=== PATIENT | female | born 1960 | race Caucasian/White ===

== ENCOUNTER → 2020-12-24 | Outpatient (CLI) | payer OTHER | LOC: SJCVCIMAG 07:44 | PROVIDERS: ATTEND Internal Medicine | DX: I07.1 Rheumatic tricuspid insufficiency (principal); R00.0 Tachycardia, unspecified; I11.9 Hypertensive heart disease without heart failure; I27.20 Pulmonary hypertension, unspecified; E78.5 Hyperlipidemia, unspecified; I70.1 Atherosclerosis of renal artery; E11.9 Type 2 diabetes mellitus without complications; F17.200 Nicotine dependence, unspecified, uncomplicated; Z79.4 Long term (current) use of insulin; Z79.899 Other long term (current) drug therapy ==

== ENCOUNTER 2021-11-05 18:37 | Inpatient (IN) | payer OTHER ==
[~2021-11-05] VITALS: Ht 167.6 cm; Wt 86.0 kg
[2021-11-05 21:00] VITALS: BP 153/61
[2021-11-05] MEDS ORDERED: SPIRONOLACTONE25 M1 PO (22:16)
[2021-11-05] MEDS ORDERED: OLMESARTAN MEDO20 MG PO (22:32)
[2021-11-05] MEDS ORDERED: COQ1050 MG PO (22:34)
[2021-11-05] MEDS ORDERED: ROSUVASTATIN CA10 MG PO (22:34)
[2021-11-05] MEDS ORDERED: TOPROL XL50 MG PO (22:37)
[2021-11-05] MEDS ORDERED: CLONIDINE HCL0.1 MG PO (22:39)
[2021-11-05] MEDS ORDERED: METFORMIN HCL500 M3 PO (22:40)
[2021-11-05] MEDS ORDERED: EZETIMIBE10 MG PO (22:41)
[2021-11-05] MEDS ORDERED: LANTUS SUBQ (22:42)
[2021-11-05] MEDS ORDERED: HUMALOG100 UNIT/1 SUBQ (22:43)
[2021-11-05] MEDS ORDERED: NEURONTIN300 MG PO (22:44)
[2021-11-05] MEDS ORDERED: ONDANSETRON HCL4 M2 PO (22:46)
[2021-11-05] MEDS ORDERED: IBU800 MG PO (22:49)
[2021-11-05] MEDS ORDERED: COMPAZINE10 M2 PO (22:50)
[2021-11-05] MEDS ORDERED: MONTELUKAST SODI4 M1 PO (22:54)
[2021-11-05 23:00] LABS: CHOLESTEROL 163 mg/dL (<200); HDL CHOLESTEROL 40 mg/dL (>40); LDL CHOLESTEROL 83 mg/dL (<100); TC:HDL 4.1 Ratio (Not establshd); TRIGLYCERIDE 204 mg/dL (<150); VLDL 41 mg/dL (<40)
[2021-11-05 23:05] LABS: SERUM ASSESSMENT Clear
[2021-11-06] VITALS: BP 153/58
[2021-11-06 04:45] VITALS: BP 152/59
--- NOTE | 2021-11-06 04:56 | NUR ---
ADMITTED THIS PATIENT FROM [facility] AROUND 2054H.PATIENT IS ALERT AND ORIENTED X4.WITH MALIK CATH IN PLACE INTACT.AFTER PATIENT WENT TO BATHROOM HAD COMPLAINT OF PAIN IN BETWEEN SHOULDER BLADE 4/10 A SPER PATIENT, INFORMED COMPENSATOR.ECG DONE AND WHILE DOING ECG PATIENT TOLD THAT PAIN HAS BEEN GONE 0/10.ECG WAS SEEN BY COMPENSATOR.ADMISSION COMPLETED.ALL NEEDS ATTENDED.KEPT NPO FROM MIDNIGHT PER COMPENSATOR FOR POSSIBLE CATH IN THE MORNING.TO CONTINOUSLY MONITOR.
[2021-11-06 07:01] LABS: MCH 29.7 pg (26.0-34.0)
[2021-11-06 07:06] LABS: HEMATOCRIT 28.3 % (37.0-47.0); HEMOGLOBIN 9.1 gm/dL (12.0-15.0); MCHC 32.2 g/dL (28.0-37.0); MCV 92.2 fL (80.0-100.0); RBC 3.07 mil/uL (4.20-5.00); RDW 17.3 % (10.5-14.5)
[2021-11-06 07:13] LABS: WBC 41.4 thou/uL (4.0-11.0)
[2021-11-06 07:37] LABS: CALCIUM 8.8 mg/dL (8.5-10.1); CREATININE 0.7 mg/dL (0.6-1.0); MAGNESIUM 1.9 mg/dL (1.8-2.4); POTASSIUM 3.9 mmol/L (3.5-5.1)
[2021-11-06 08:00] VITALS: BP 144/62
[2021-11-06 08:11] LABS: GLYCOHEMOGLOBIN (HGB A1C) 7.8 % (4.8-5.6)
--- NOTE | 2021-11-06 11:28 | EKG ---
[address] [address] ELECTROCARDIOGRAM REPORT Name: ROBERTA PHILIPPE Room #: 206- ADM IN M.R.#: [id number] Admission: 11/05/21 Attend Phys: Rene Bowman MD Discharge: Date of : 56 Report #: [id number] [facility] Test Date: 2021-11-06 Test Time: 00:13:35 Pat Name: ROBERTA PHILIPPE Department: Room: 206 Gender: F Bakery Technician: RC03 : 1960 Requested By: Jeanette Jackman Order Number: [id number] MD: Ronald Curry Measurements Intervals [place] Rate: 83 P: 59 [place]: 156 QRS: -27 QRSD: 89 T: 50 QT: 404 QTc: 475 Interpretive Statements Sinus rhythm Abnormal R-wave progression, late transition Inferior infarct, old No previous ECG available for comparison Electronically Signed On 11-06-2021 11:28:42 RN HYPERBARIC by Ronald Curry [email or web address] <ELECTRONICALLY SIGNED> By: Ronald Curry MD 11/06/21 1128 0013 0013 MD JUDY Bullock
--- NOTE | 2021-11-06 12:48 | 2DMMODE ---
[facility] [place] [address] 2 D/M-MODE ECHOCARDIOGRAM Name: ROBERTA PHILIPPE Room #: 206-P ADM IN ..#: [id number] Admission: 11/05/21 Attend Phys: Rene Bowman MD Discharge: Date of : 56 Report #: [id number] THIS REPORT FOR: cc: FAM - Family physician unknown FAM - Family physician unknown Ronald Curry MD ~ APPROVED REPORT Study performed: 11/06/2021 11:07:49 EXAM: Comprehensive 2D, Doppler, and color-flow Echocardiogram Patient Location: In-Patient Room #: 206 BSA: 2.00 HR: 70 bpm BP: 144/62 mmHg Rhythm: NSR Other Information Study Quality: Adequate Indications Diabetes Cardiomyopathy Chemo Chest Pain Hypertension/HDD 2D Dimensions IVSd: 13.72 (7-11mm) LVOT Diam: 21.31 (18-24mm) LVDd: 47.05 mm PWd: 14.18 (7-11mm) Ascending Ao: 37.65 (22-36mm) LVDs: 31.04 (25-40mm) Left Atrium: 48.41 (27-40mm) Aortic Root: 29.70 mm Volumes Left Atrial Volume (Systole) Single Plane 4CH: 54.99 mL Single Plane 2CH: 37.93 mL Biplane LA Volume: 49.00 mL LA ESV Index: 25.00 mL/m2 Aortic Valve [facility] [address] [address] 2 D/M-MODE ECHOCARDIOGRAM Name: ROBERTA PHILIPPE Atif Room #: 206-P [facility] IN ..#: [id number] Admission: 11/05/21 Attend Phys: Rene Bowman MD Discharge: Date of : 56 Report #: [id number] AoV [place].: 1.32 m/s AO Peak Gr.: 7.02 mmHg LVOT Max P.48 mmHg LVOT Max V: 0.93 m/s JOCELYNE Vmax: 2.51 cm2 Mitral Valve E/A Ratio: 1.3 MV Decel. Time: 200.36 ms MV E Max Parish.: 1.04 m/s MV A Parish.: 0.81 m/s MV PHT: 58.10 ms IVRT: 110.73 ms Pulmonary Valve PV Peak [place].: 1.21 m/s PV Peak Gr.: 5.90 mmHg Tricuspid Valve TR [place].: 1.26 m/s RAP Estimate: 7.00 mmHg TR Peak Gr.: 6.33 mmHg RVSP: 13.00 mmHg Left Ventricle The left ventricle is normal size. Regional wall motion is not well visualized but grossly normal. Mild concentric left ventricular hypertrophy. Left ventricular systolic function is normal. LVEF is 55%. Right Ventricle The right ventricle is normal size. The right ventricular systolic function is normal. Atria The left atrium size is normal. The right atrium size is normal. Aortic Valve Aortic valve is trileaflet. No aortic regurgitation is present. There is no aortic valvular stenosis. Mitral Valve The mitral valve is normal in structure. Mild mitral regurgitation. No evidence of mitral valve stenosis. Tricuspid Valve The tricuspid valve is normal in structure. Trace tricuspid regurgitation. Unable to assess PA pressure. [facility] [place] [address] [address] 2 D/M-MODE ECHOCARDIOGRAM Name: ROBERTA PHILIPPE Room #: 206-P [facility] IN .R.#: [id number] Admission: 11/05/21 Attend Phys: Rene Bowman MD Discharge: Date of : 56 Report #: [id number] Pulmonic Valve The pulmonary valve is normal in structure. There is no pulmonic valvular regurgitation. Great Vessels The aortic root is normal in size. IVC is normal in size and collapses >50% with inspiration. Pericardium There is no pericardial effusion. <Conclusion> The left ventricle is normal size. Mild concentric left ventricular hypertrophy. Left ventricular systolic function is normal. The right ventricle is normal size. The left atrium size is normal. Aortic valve is trileaflet. Mild mitral regurgitation. Trace tricuspid regurgitation. <ELECTRONICALLY SIGNED> By: Ronald Curry MD 11/06/21 1248 1248 1248 Ronald Curry MD /DRAKE
--- NOTE | 2021-11-06 13:03 | NUR ---
PATIENT IS BACK IN ROOM FROM HEART CATH PROCEDURE AT 1300. A STENT WAS PLACED IN THE MID-RCA AND HEMOSTASIS WAS ACHIEVED AT 12:40. PATIENT WILL REMAIN ON BEDREST FOR 3 HOURS POST-HEMOSTASIS AND HAS BEEN EDUCATED ON THE PRECAUTIONS IN PLACE. PATIENT IS CURRENTLY STABLE AND DENIES ANY CHEST PAIN OR PRESSURE. R GROIN SITE IS SOFT TO PALPATION WITH NO S/S OF HEMATOMA, MYNX CLOSURE DRESSING C/D/I.
--- NOTE | 2021-11-06 13:59 | NUR ---
PATIENT STATES SHE IS FEELING INTERMITTENT SOB, "LIKE EVERY SO OFTEN I FEEL LIKE I HAVE TO GASP FOR BREATH." DR. NEWBERRY WAS NOTIFIED VIA ANSWERING SERVICE AND AWAITING CALL BACK.
[2021-11-06 15:11] LABS: HEMATOCRIT 27.7 % (37.0-47.0); MCH 29.9 pg (26.0-34.0); MCHC 32.5 g/dL (28.0-37.0); MCV 92.1 fL (80.0-100.0); PLATELET COUNT 106 thou/uL (150-400); RBC 3.01 mil/uL (4.20-5.00); RDW 16.8 % (10.5-14.5); WBC 32.1 thou/uL (4.0-11.0)
[2021-11-06 15:30] VITALS: BP 135/72
[2021-11-06 15:47] LABS: ABSOLUTE NEUTROPHILS 29.9 thou/uL (1.4-8.2)
[2021-11-06 16:30] VITALS: BP 107/79
[2021-11-06 20:00] VITALS: BP 153/56
[2021-11-07 03:44] VITALS: BP 101/53
--- NOTE | 2021-11-07 04:47 | NUR ---
RECEIEVED PATIENT AT 1900H.ON ROOM AIR BREATHING SPONTANEOUSLY.WITH RIGHT GROIN COVERED WITH DRESSING C/D/I, NO HEMATOMA OR ANY COMPLICATIONS NOTED FROM THE SITE.PATIENTTOLD SHE USES CPAP AT HOME DURING SLEEP BUT DID NOT BRING HER OWN MACHINE, INFORMED RT. RT PLACED PATIENT ON VNTURI MASK AT 2LPM,WAS SATURATING WELL.MEDS GIVEN PER DEC.TO CONTINOUSLY MONITOR.
[2021-11-07 06:56] LABS: HEMATOCRIT 26.7 % (37.0-47.0); HEMOGLOBIN 8.8 gm/dL (12.0-15.0); MCH 30.5 pg (26.0-34.0); MCV 92.3 fL (80.0-100.0); RBC 2.9 mil/uL (4.20-5.00); RDW 16.8 % (10.5-14.5)
[2021-11-07 07:02] LABS: WBC 13.9 thou/uL (4.0-11.0)
[2021-11-07 07:13] LABS: ALBUMIN 2.8 g/dL (3.4-5.0); CALCIUM 8.6 mg/dL (8.5-10.1); CREATININE 0.6 mg/dL (0.6-1.0); POTASSIUM 3.4 mmol/L (3.5-5.1); TOTAL BILIRUBIN 0.2 mg/dL (0.2-1.0); TOTAL PROTEIN 5.8 g/dL (6.4-8.2)
[2021-11-07 07:55] VITALS: BP 130/46
--- NOTE | 2021-11-07 11:14 | EKG ---
[place] [address] [facility] [place] [address] ELECTROCARDIOGRAM REPORT Name: ROBERTA PHILIPPE Room #: 206- ADM IN M.R.#: [id number] Admission: 11/05/21 Attend Phys: Rene Bowman MD Discharge: Date of : 56 Report #: [id number] [facility] Test Date: 2021-11-07 Test Time: 07:33:52 Pat Name: ROBERTA PHILIPPE Department: Room: 206 Gender: F Mailing Jogger: MARY : 1960 Requested By: Ronald Curry Order Number: [id number] MD: Ronald Curry Measurements Intervals [place] Rate: 62 P: 49 [place]: 146 QRS: -28 QRSD: 110 T: -51 QT: 467 QTc: 475 Interpretive Statements Sinus rhythm Abnormal R-wave progression, late transition Probable left ventricular hypertrophy Inferior infarct, age indeterminate Compared to ECG 11/06/2021 13:10:58 No significant change Electronically Signed On 11-07-2021 11:14:28 RAILWAY ENGINEER by Ronald Curry [email or web address] <ELECTRONICALLY SIGNED> By: Ronald Curry MD 11/07/21 1114 0733 2 MD JUDY Bullock
--- NOTE | 2021-11-07 11:18 | EKG ---
[address] [place] [address] ELECTROCARDIOGRAM REPORT Name: ROBERTA PHILIPPE Room #: 206- ADM IN M.R.#: [id number] Admission: 11/05/21 Attend Phys: Rene Bowman MD Discharge: Date of : 56 Report #: [id number] [facility] Test Date: 2021-11-06 Test Time: 13:10:58 Pat Name: ROBERTA PHILIPPE Department: Room: 206 Gender: F Book Sewer: CYNTHIA : 1960 Requested By: Ronald Curry Order Number: [id number] MD: Ronald Curyr Measurements Intervals [place] Rate: 70 P: 50 MT: 153 QRS: -21 QRSD: 92 T: -14 QT: 412 QTc: 445 Interpretive Statements Sinus rhythm Borderline left axis deviation Borderline T abnormalities, inferior leads Compared to ECG 11/06/2021 00:13:35 T-wave abnormality now present Myocardial infarct finding no longer present Electronically Signed On 11-07-2021 11:18:34 TECHNOLOGY INTERNSHIP by Ronald Curry [email or web address] <ELECTRONICALLY SIGNED> By: Ronald Curry MD 11/07/21 1118 1310 1310 Ronald Curry MD /PEDRO
[2021-11-07 11:25] VITALS: BP 143/54
[2021-11-07] MEDS ORDERED: EFFIENT10 MG PO (11:42)
[2021-11-07] MEDS ORDERED: ADULT LOW DOSE81 MG PO (11:43)
[2021-11-07 12:06] VITALS: BP 143/54
--- NOTE | 2021-11-07 12:55 | NUR ---
PT IS AXOX4, PLEASANT; VSS, AFEBRILE, SR ON THE MONITOR; DENIES PAIN. PT R GROIN MYNX DRESSING C/D/I, NO HEMATOMA. PT AT THE BEDSIDE. PORT A CATH D/C PER HOSPITAL PROTOCOL. DR NEWBERRY CONSULTED. DR ARCEO CONSULTED. PT TO D/C HOME, WITH FOLLOW UP WITH OWN DOCTOR IN 2 WEEKS. RX EFFIENT AND LOW DOSE ASPIRIN EXPLAINED PART OF D/C INSTRUCTION. PT AND PT COMMUNICATED UNDERSTANDING. PT D/C HOME WITH VIA PERSONAL VEHICLE. NO CONCERNS AT THIS TIME.
--- NOTE | 2021-11-08 08:08 | HC ---
[facility] [place] [address] CONSULTATION Name: ROBERTA PHILIPPE Room #: 206-P [facility] IN ..#: [id number] Admission: 11/05/21 Attend Phys: Rene Bowman MD Discharge: 11/07/21 Date of : 56 Report #: [id number] THIS REPORT FOR: cc: FAM - Family physician unknown FAM - Family physician unknown Ronald Curry MD ~ DATE OF SERVICE: 11/06/2021 CARDIOLOGY CONSULTATION INDICATION: Chest pain. HISTORY OF PRESENT ILLNESS: This is a pleasant 61-year-old female with a history of breast cancer, diabetes mellitus, hypertension, hypercholesterolemia, tobacco use and neuropathy, presenting with chest pain. She initially presented to [facility] with complaints of substernal chest pain radiating to the back. This has been ongoing for the past several days, in a stuttering pattern. She has been getting outpatient treatment for breast cancer as well as Neulasta. Since she has been getting chemotherapy, she has been experiencing nausea and vomiting. There is no history of fever or chills. She did have some concomitant shortness of breath and diaphoresis along with the chest pains. She was transferred up from [facility]. PAST MEDICAL HISTORY: Did have a stress test last year that was nonischemic. History of diabetes mellitus, hypertension, hypercholesterolemia and peripheral neuropathy. ALLERGIES: ACETAMINOPHEN, ADHESIVE, NIACIN, OXYCODONE, TRAMADOL and ____. SOCIAL HISTORY: Positive tobacco use, half a pack per day at present. FAMILY HISTORY: Negative for premature CAD. MEDICATIONS: Include spironolactone daily, olmesartan 20 mg daily, Crestor 10 mg at night, metoprolol 50, clonidine, metformin, insulin, Zetia and Neurontin. REVIEW OF SYSTEMS: A full 10-point review of systems performed. Only the pertinent positives and negatives are described in the HPI. PHYSICAL EXAMINATION: VITAL SIGNS: Blood pressure is 140/60, heart rate is 80 beats per minute. GENERAL APPEARANCE: She is a well-developed, well-nourished female in no acute distress. HEENT: Normocephalic, atraumatic. Oral mucosa moist. NECK: Supple. LUNGS: Clear to auscultation. [facility] [address] [place] [address] CONSULTATION Name: ROBERTA PHILIPPE Atif Room #: [address] [place] [address] [place] [facility].#: [id number] Admission: 11/05/21 Attend Phys: Rene Bowman MD Discharge: 11/07/21 Date of : 56 Report #: [id number] CARDIAC: Regular rate and rhythm, S1, S2 positive. ABDOMEN: Soft, nontender. EXTREMITIES: No cyanosis, no edema. DIAGNOSTIC DATA: ECG reveals sinus rhythm, Q-waves in leads III and aVF, nonspecific T-wave abnormality. LABORATORY DATA: White count is 41.4, hemoglobin is 9.1, creatinine 0.7. Peak troponin is 2761. ASSESSMENT AND PLAN: 1. Non-ST elevation myocardial infarction, patient with multiple ____ risk factors, presenting with chest pain. I have discussed with her the risks and benefits of medical therapy versus cardiac catheterization. Given her presentation and risk factors, we will proceed with a coronary angiogram. All questions were answered. Continue with aspirin therapy. 2. Hypertension, continue with medications. 3. Diabetes mellitus, as per primary. 4. Hypercholesterolemia, continue with Crestor and Zetia. 5. Breast cancer, elevated white count due to Neulasta. <ELECTRONICALLY SIGNED> By: Ronald Curry MD 11/08/21 0808 0836 1904 Ronald Curry MD /nt
--- NOTE | 2021-11-08 14:26 | CATHLAB ---
[facility] [place] [address] INVASIVE PROCEDURE REPORT Name: ROBERTA PHILIPPE Room #: 206-P [facility] IN .R.#: [id number] Admission: 11/05/21 Attend Phys: Rene Bowman MD Discharge: 11/07/21 Date of : 56 Report #: [id number] THIS REPORT FOR: cc: FAM - Family physician unknown FAM - Family physician unknown Ronald Curry MD ~ ADDENDUM APPROVED REPORT Study performed: 11/06/2021 10:53:43 Patient Details Patient Status: In-Patient Room #: 206 The patient is a 61 year-old female Event Personnel Ronald Curry Hot Wire Glass Tube Cutter, Malka Streeter RN RN, Jonah Guadalupe RT(R)(CV) Narendra Corbett Nancy RTR, HORSES OR MULES TEAMSTER Monitor Procedures Performed Art Access - R femoral artery* Left Heart Cath w/or w/o Coronaries [id number] [facility] [address] Initial Mod Sed Same Phys/QHP Gr5y 764260 41841 Mod Sed Same Phys/QHP Ea 641820 [facility] Place w/wo Plasty Single RCA 034699 Indication Non-STEMI , Dyspnea, Chest pain Risk Factors Hypercholesterolemia, Hypertension, Diabetes Tobacco History () Procedure Narrative The Right Groin^ was infiltrated with 1% Lidocaine subcutaneous anesthesia. A PINNACLE 4FR Sheath #[id number] sheath was inserted into the RFA^. Coronary angiography was performed using coronary diagnostic catheters. The right coronary system was accessed and visualized with a JR4 catheter. The left coronary system was accessed and visualized with a JL4 catheter. The left ventricle was accessed and visualized with a ANGLED PIGTAIL catheter. Left ventriculogram was performed in MACKAY projection. Pre-demployment femoral angiogram was performed . Closure device was deployed with a 6 Fr MYNX CONTROL 6F/7F L#[id number]. The patient tolerated the procedure well and there were no complications associated with the procedure. There was no hematoma. [facility] [place] [address] INVASIVE PROCEDURE REPORT Name: ROBERTA PHILIPPE Room #: 206-P [facility] IN [facility]#: [id number] Admission: 11/05/21 Attend Phys: Rene Bowman MD Discharge: 11/07/21 Date of : 56 Report #: [id number] Intraoperative Conscious Sedation Sedation start time: 11:51 Case end Time: 12:43 Fentanyl 150 mcg Versed 2 mg Fluoro Time: 9.13 minutes Dose: DAP 22798.50 cGycm2 1343 mGy Contrast Type and Amount: Omnipaque 175 ml Coronary Angiography The patient's coronary anatomy is right dominant. Diagnostic Cath Left Main The left main artery is a large-caliber vessel with a borderline eccentric stenosis in the proximal segment, 40 to 60%. LAD This is a moderate-sized caliber vessel, traverses anterior wall and wraps around the apex. There is mild disease in the proximal segment, 30%. Diagonal 1 This is a small to moderate-sized caliber vessel, patent with mild disease proximally. Circumflex The left circumflex is a moderate-sized caliber vessel with mild to moderate disease in the proximal and mid segments, 30 to 40%. OM1 This is a moderate-sized caliber vessel, patent with no flow-limiting lesions. OM2 This is a moderate-sized caliber vessel, patent with no flow-limiting lesions. Right Coronary The RCA is a moderate-sized caliber vessel with a severe stenosis in the mid segment with haziness, 90%. R PDA This is a moderate-sized caliber vessel, patent with no flow-limiting lesions. RPLV This is a moderate-sized caliber vessel, patent with no flow-limiting lesions. Left Ventriculography The left ventricle is normal in size with Diminished contractility. The left ventricular ejection fraction is estimated to be 40-45%. Left ventricular wall motion abnormalities are present. There is hypokinesis of the inferior wall. Hemodynamics The aortic pressure is 156/64 mmHg with a mean of 99 mmHg. The left ventricular pressure is 159/11 mmHg with a mean of mmHg. The left ventricular end diastolic pressure is 25 mmHg. [facility] [address] [place] [address] INVASIVE PROCEDURE REPORT Name: ROBERTA PHILIPPE Room #: 206-P DIS IN M.R.#: [id number] Admission: 11/05/21 Attend Phys: Rene Bowman MD Discharge: 11/07/21 Date of : 56 Report #: [id number] PCI Technique Lesion Percutaneous coronary intervention was performed on the mid right coronary artery. The lesion stenosis prior to intervention was 90% with MATTHIAS 3 flow. A VISTA 6FR JR 4 #[id number] Guide Catheter was used to engage the ostium. A Luge Wire .014 x 182CM #[id number] Interventional Guidewire was used to cross the lesion. BALLOON DILATION A Balloon catheter TREK RX 2.25 X 12 #[id number] was inserted and inflated up to 10.00atm for 25seconds. STENT DEPLOYMENT A drug-eluting stent XIENCE SKYPOINT 2.25 X 15 was inserted and inflated up to 14.00atm for 25seconds. POST STENT DEPLOYMENT BALLOON DILATION A Balloon catheter TREK NC RX 2.5 X 12 #[id number] was inserted and inflated up to 16.00atm for 15seconds. Additional Inflation: 16.00atm for 10seconds. Final angiography reveals 0 % stenosis with MATTHIAS 3 flow. Conclusion 1. PCI with placement of a drug-eluting stent into the mid RCA stenosis. 2. There is a mild to moderate stenosis in the LAD and left circumflex arteries. 3. There is a borderline eccentric stenosis in the proximal left main, 40 to 60%. Recommend surgical evaluation. 4. There is mild to moderate segmental LV dysfunction. 5. Recommend dual antiplatelet therapy and aggressive risk factor management. <ELECTRONICALLY SIGNED> By: Ronald Curry MD 11/08/21 1426 1426 1426 Ronald Curry MD /INF
== END 2021-11-07 13:28 | disposition home or self-care (01) | DRG 247 ==
LOC: 2N 18:37
PROVIDERS: Internal Medicine Cardiovascular Disease; Nurse Practitioner Family; ADMIT Hospitalist; ATTEND Hospitalist
DX: I21.4 Non-ST elevation (NSTEMI) myocardial infarction (principal); E46 Unspecified protein-calorie malnutrition; I10 Essential (primary) hypertension; E78.00 Pure hypercholesterolemia, unspecified; E11.42 Type 2 diabetes mellitus with diabetic polyneuropathy; E11.319 Type 2 diabetes mellitus with unspecified diabetic retinopathy without macular edema; D72.829 Elevated white blood cell count, unspecified; Z86.16 Personal history of COVID-19; Z88.8 Allergy status to other drugs, medicaments and biological substances; Z82.49 Family history of ischemic heart disease and other diseases of the circulatory system; Z88.6 Allergy status to analgesic agent; Z88.1 Allergy status to other antibiotic agents; Z80.1 Family history of malignant neoplasm of trachea, bronchus and lung; Z68.30 Body mass index [BMI] 30.0-30.9, adult; Z79.82 Long term (current) use of aspirin; Z79.899 Other long term (current) drug therapy; Z28.21 Immunization not carried out because of patient refusal
CPT/HCPCS: 10081

== ENCOUNTER → 2021-11-29 | Outpatient (CLI) | payer OTHER ==
[~2021-11-29] MED LIST: ADULT LOW DOSE81 MG PO; CLONIDINE HCL0.1 MG PO; COMPAZINE10 M2 PO; COQ1050 MG PO; EFFIENT10 MG PO; EZETIMIBE10 MG PO; HUMALOG100 UNIT/1 SUBQ; IBU800 MG PO; LANTUS SUBQ; METFORMIN HCL500 M3 PO; MONTELUKAST SODI4 M1 PO; NEURONTIN300 MG PO; OLMESARTAN MEDO20 MG PO; ONDANSETRON HCL4 M2 PO; ROSUVASTATIN CA10 MG PO; SPIRONOLACTONE25 M1 PO; TOPROL XL50 MG PO
== END ==
LOC: SJCVCIMAG 11-23 10:49
PROVIDERS: ATTEND Internal Medicine Cardiovascular Disease
DX: Z01.810 Encounter for preprocedural cardiovascular examination (principal); I25.10 Atherosclerotic heart disease of native coronary artery without angina pectoris; I10 Essential (primary) hypertension; E78.00 Pure hypercholesterolemia, unspecified; F17.210 Nicotine dependence, cigarettes, uncomplicated; Z88.8 Allergy status to other drugs, medicaments and biological substances; Z79.82 Long term (current) use of aspirin; Z72.89 Other problems related to lifestyle; Z79.4 Long term (current) use of insulin; Z79.899 Other long term (current) drug therapy